=== PATIENT | male | born 1970 | race Caucasian/White ===

== ENCOUNTER 2017-12-13 15:22 | Emergency (ER) | payer BC ==
[~2017-12-13] VITALS: Ht 180.3 cm; Wt 97.7 kg
[2017-12-13] MEDS ORDERED: LISINOPRIL10 MG PO (15:44)
[2017-12-13] MEDS ORDERED: IMITREX 25MG TA25 MG (15:44)
[2017-12-13] MEDS ORDERED: BUSPIRONE HCL7.5 MG PO (15:44)
[2017-12-13 16:05] LABS: BASO # 0.1 (0.02-0.10); EOS # 0.2 (0.04-0.40); EOS % 3.5 % (0.0-4.0); LYMPH# 2.2 (1.50-4.00); MEAN CELL VOLUME 87 fl (78-100); MEAN CORPUSCULAR HEMOGLOBIN 30 pg (27-31); MEAN CORPUSCULAR HGB CONC 35 g/dL (33-37); MEAN PLATELET VOLUME 11.4 fl (7.4-10.4); MONO # 0.5 (0.20-0.80); NEU # 2.8 (1.40-6.50); PLATELET COUNT 160 K/mm3 (130-400); RED BLOOD COUNT 4.97 M/mm3 (4.20-5.60); RED CELL DISTRIBUTION WIDTH 12.1 % (11.5-14.5); WHITE BLOOD COUNT 5.7 K/mm3 (4.8-10.8)
[2017-12-13 16:12] LABS: ALBUMIN 3.9 g/dL (3.5-5.0); BUN/CREATININE RATIO 13.5 (6.0-26.0); CALCIUM 8.7 mg/dL (8.4-10.2); POTASSIUM 3.7 mmol/L (3.6-5.0); TOTAL BILIRUBIN 0.3 mg/dL (0.2-1.3); TOTAL PROTEIN 6.3 g/dL (6.3-8.2)
[2017-12-13 16:47] LABS: URINE WBC 0 /hpf (0-3)
[2017-12-13 16:48] LABS: URINE APPEARANCE CLEAR; URINE COLOR LT YELLOW
[2017-12-13 16:49] LABS: PH-URINE 5.5 (5.0 - 8.0); URINE BILIRUBIN NEGATIVE (NEGATIVE); URINE BLOOD NEGATIVE (NEGATIVE); URINE GLUCOSE NEGATIVE (NEGATIVE); URINE KETONE NEGATIVE (NEGATIVE); URINE LEUKOCYTE ESTERASE NEGATIVE (NEGATIVE); URINE NITRATE NEGATIVE (NEGATIVE); URINE PROTEIN(semi-quant) NEGATIVE (NEGATIVE); URINE UROBILINOGEN NORMAL (NORMAL)
[2017-12-13 19:30] VITALS: BP 107/77
== END 2017-12-13 19:30 | disposition home or self-care (01) ==
LOC: ED 15:22
PROVIDERS: Family Medicine
DX: I10 Essential (primary) hypertension (principal); K21.9 Gastro-esophageal reflux disease without esophagitis; F41.9 Anxiety disorder, unspecified